=== PATIENT | male | born 1995 | race Caucasian/White ===

== ENCOUNTER 2025-10-01 02:21 | Emergency (ER) | payer MEDICAID, OTHER ==
[~2025-10-01] VITALS: Ht 172.7 cm; Wt 81.6 kg
[2025-10-01] MEDS: IV NS 0.9% 1,000 ML BAG IV ONE (02:55)
[2025-10-01 03:05] LABS: PLATELET COUNT (AUTO) 269 K/uL (150-450); RED BLOOD CELL COUNT(AUTO) 5.40 MIL/uL (4.5-6.0); RED CELL DISTRIBUTION WIDTH 12.7 % (11.5-15.0); WHITE BLOOD COUNT (AUTO) 8.9 K/uL (4.3-11.0)
[2025-10-01 03:11] LABS: CALCIUM, SERUM 8.6 mg/dL (8.5-10.1); CREATININE 1.3 mg/dL (0.6-1.3); SODIUM SERUM 141 mmol/L (136-145); UREA NITROGEN, BLOOD 22 mg/dL (7-18)
[2025-10-01 03:17] LABS: ASPARTATE AMINOTRANSFERASE 17 U/L (15-37); TOTAL PROTEIN, SERUM 7.6 g/dL (6.4-8.2)
[2025-10-01] MEDS: FAMOTIDINE/PF INJ 20 MG/2 ML VIAL IV ONE (03:23)
[2025-10-01] MEDS: LIDOCAINE VISCOUS 2% UD 15 ML UDC MM ONE (03:23)
[2025-10-01] MEDS: LORAZEPAM INJ 2 MG/ML VIAL IV ONE (03:23)
[2025-10-01] MEDS: MAG HYDROX/AL HYDROX/SIMETH 30 ML UDC PO ONE (03:23)
[2025-10-01 03:58] VITALS: BP 138/78; TEMP 98.8; O2SAT 99
== END 2025-10-01 04:48 | disposition home or self-care (01) ==
LOC: ER 02:27
DX: R10.13 Epigastric pain (principal); F41.0 Panic disorder [episodic paroxysmal anxiety]; Z88.6 Allergy status to analgesic agent
CPT/HCPCS: 99285; 96374; 71045; 96361; 96375; 93005; 85025; 80048; 83690; 80076; 36415; 84484; J2060; J1308